=== PATIENT | male | born 1995 | race African-American/Black ===

== ENCOUNTER 2016-06-21 12:18 | Emergency (ER) | payer OTHER ==
[2016-06-21 12:23] VITALS: RESP 16; TEMP 98.1
--- NOTE | 2016-06-21 12:25 | EDPHY ---
H & P Stated Complaint: L HIP PAIN Time Seen by Provider: 06/21/16 12:18 HPI/ROS: CHIEF COMPLAINT: left hip pain HISTORY OF PRESENT ILLNESS: 21-year-old male presents emergency department by ambulance and the [facility] sports medicine fellow with left hip pain. Patient was in practice running with the ball when another player ran into his left hip. Patient had immediate pain. His left hip was dislocated per provider on scene. Patient had neurovascular compromise and his hip was reduced by . Patient on arrival to the emergency department reports his pain is in his groin, he denies numbness or tingling to this leg, he has pain with any range of motion. Patient denies previous injury to this hip. No head strike, no neck pain. REVIEW OF SYSTEMS: A comprehensive 10 point review of systems is otherwise negative aside from elements mentioned in the history of present illness. Source: Patient Exam Limitations: No limitations - Personal History Current Tetanus/Diphtheria Vaccine: Unsure - Medical/Surgical History Hx Asthma: No Hx Chronic Respiratory Disease: No Hx Diabetes: No Hx Cardiac Disease: No Hx Renal Disease: No Hx Cirrhosis: No Hx Alcoholism: No Hx HIV/AIDS: No Hx Splenectomy or Spleen Trauma: No - Social History Smoking Status: Never smoked - Physical Exam Exam: Physical Exam Gen: Alert and Oriented, NAD HEENT: PERRL, moist mucous membranes NECK: No C-spine tenderness to palpation Chest wall nontender CV: regular rate and regular rhythm PULM: CTAB, no wheezes ABDOMEN: soft, non tender to palpation, BS present BACK: Nontender NEURO: Neurologically grossly intact EXTREMITIES: Left hip with tenderness to palpation to lateral squeeze, 2+ pedal pulses, sensation intact to light touch, pain with any range of motion SKIN: no break in skin on exposed skin PSYCH: answers questions appropriately. Constitutional: Initial Vital Signs Temperature (C) 36.7 C 06/21/16 12:18 Heart Rate 86 06/21/16 12:18 Respiratory Rate 16 06/21/16 12:18 Blood Pressure 107/67 06/21/16 12:18 O2 Sat (%) 95 06/21/16 12:18 O2 Delivery Mode Room Air O2 (L/minute) 2 Allergies/Adverse Reactions: No Known Allergies Allergy (Unverified 06/21/16 12:21) Home Medications: Medication Instructions Recorded NK [No Known Home Meds] 06/21/16 Medical Decision Making - Diagnostics Imaging: X-ray left hip- Impression: Displaced acetabular fracture fragment. Recommend CT of the hip for further evaluation. Results discussed with Jeanne Keene. Dictated By: Bill Patel MD CT hip- Impression: Mildly displaced long segment acetabular fracture. Results discussed with Imtiaz Barragan. Dictated By: Bill Patel MD MRI left hip- Impression: Expected sequelae of a recent posterior left hip dislocation . The acetabular lip fracture is laterally displaced by approximately 8 mm. Results discussed with Jeanne Keene. Dictated By: Bill Patel MD ED Course/Re-evaluation: 21-year-old male presents to the ER with left hip pain after a dislocation during football practice at [facility]. The Sports Medicine fellow orthopedist reduced his dislocation EN route to the emergency department. X- ray reveals a acetabular fracture. [facility] sports medicine doctor is requesting a MRI of this hip which has been ordered. We also have ordered a CT of this hip. 245pm-patient will be transferred to [facility]. Dr. Pihllips, orthopedic trauma surgeon is the accepting physician. Patient continues neurovascularly intact, left hip pain is 3/10. He will be given a dose of IV Dilaudid. - Data Points Medications Given: Discontinued Medications Fentanyl (Sublimaze) 100 mcg IVP EDNOW ONE Stop: 06/21/16 12:50 Last Admin: 06/21/16 12:52 Dose: 100 mcg Hydromorphone HCl (Dilaudid) 0.5 mg IVP EDNOW ONE Stop: 06/21/16 14:41 Last Admin: 06/21/16 14:57 Dose: 0.5 mg Departure - Departure Disposition: Acute Care Hospital Not [facility] Clinical Impression: Left acetabular fracture Qualifiers: Encounter type: initial encounter Sublocation of acetabulum: unspecified portion of acetabulum Fracture type: closed Fracture alignment: displaced Qualified Code(s): S32.402A - Unspecified fracture of left acetabulum, initial encounter for closed fracture Condition: Good Referrals: Patient,NotPresent [Unknown] - As per Instructions
[2016-06-21] MEDS ORDERED: fentaNYL 100 MCG/2 ML INJ IVP ONE (12:49)
[2016-06-21] MEDS ORDERED: HYDROmorphONE/DILAUDID 1 MG/ML SYR IVP ONE (14:40)
[2016-06-21 16:08] VITALS: BP 124/76; PULSE 79; O2SAT 94
--- NOTE | 2016-06-21 16:41 | GCON ---
DATE OF CONSULTATION: 06/21/2016 CHIEF COMPLAINT: Left hip pain. 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 This afternoon after practice, the patient was running the ball and twisted a t the same time he was contacted by an opposing player resulting in immediate left hip pain. Upon i nitial evaluation while the patient was on the field, his hip was flexed and internally rotated. He was unable to straighten in his hip. He was neurovascularly intact distally. He was able to dorsi and plantar flex the ankle as well as the toes. Initial evaluation was concerning for a left hip p osterior dislocation. Due to this fact, immediately an ambulance was called and arrived very quickl y. Approximate time of left hip dislocation was 11:45 a.m. An IV was started on the patient as moon n as the ambulance arrived. He was placed in the ambulance and then in transit to the hospital he w as given 10 mL of valium to help relax his muscles due to worsening pain in the left leg as well as some increasing numbness in the left foot. The decision was made to perform a reduction maneuver wh ile in transit. The patient's left pelvis anterior superior iliac spine was stabilized by the clifford edic while I applied in-line traction and gentle internal rotation to left hip. A palpable clunk wa s felt with the immediate ability of the patient to be able to straighten his leg. Sensation in the left foot immediately returned and he felt significant improvement of his pain level. Exam before the hip reduction consisted of the patient's left hip being in slight flexion internal r otation. He had sensation of the foot. He was able to dorsi and plantar flex the ankle as well as flex and extend the toes. He had a palpable dorsalis pedis pulse with a warm perfused foot. While in transit to the hospital, the patient had increasing pain as well as some numbness progressing in his left foot. Therefore the decision was made to perform a reduction maneuver. Following the redu ction maneuver, the patient was able to fully extend the hip. He had significant improvement of his pain as well as significant improvement of the numbness that he had had in his left foot. He had p alpable dorsalis pedis and posterior tibial pulses and full sensation in the foot. He was able to d orsiflex and plantarflex the ankle as well as extend and flex the toes. Approximate time of disloca tion was 11:45 a.m. Time of reduction was 12:05 p.m., therefore the patient was dislocated for appr oximately 20 minutes. Upon arrival to the emergency room at about 12:25 x-rays, CT and MRI were conducted of the patient's left hip. X-RAY AND IMAGING FINDINGS: X-ray and imaging was significant for a concentrically reduced left hip with concern for posterior acetabular wall fracture and approximately 5-6 mm of displacement of the posterior wall fragment. No femoral neck fracture was demonstrated on CT. ASSESSMENT AND PLAN: The patient's status was communicated with the Orthopedic Surgery care team of the [facility]. The patient's initial injury as well as care was discu ssed with Dr. Kb David of the [facility] Orthopedic Surgery Department as well as th e Orthopedic Trauma surgeon at the [facility], Bulmaro Emanuel. Upon re view of the films by Dr. Emanuel, the decision was made that the patient should not be discharged home and should actually be transferred to [facility] and posterior hip precautions should be m aintained until the time of surgery. This decision was made due to concern for instability of the l eft hip due to the size of the posterior wall fragment. Transfer was begun at that time to send the patient to [facility] where he will likely undergo open reduction internal fixation on Thursday. Until that time, posterior hip precautions will be maintained and he will be in a protected enviro nment. He is going to remain nonweightbearing on the left lower extremity until he undergoes surger y. The diagnosis and plan were discussed with the patient as well as Dr. Kb David and Bulmaro white and everyone is agreeable to that plan forward. All his questions and concerns were shayne Hi #: [id number]
== END 2016-06-21 16:14 | disposition short-term general hospital (02) ==
DX: S32.442A Displaced fracture of posterior column [ilioischial] of left acetabulum, initial encounter for closed fracture (principal); X58.XXXA Exposure to other specified factors, initial encounter; Y99.8 Other external cause status; Y93.02 Activity, running
CPT/HCPCS: 96374; J1170; J3010

== ENCOUNTER 2018-02-07 22:14 | Emergency (ER) | payer OTHER ==
[2018-02-07] MEDS ORDERED: ONDANSETRON 4 MG/2 ML VIAL IVP ONE ×2 (22:31→23:28)
[2018-02-07] MEDS ORDERED: NS 1,000 ML IV ONE ×2 (22:31→23:24)
--- NOTE | 2018-02-07 23:10 | EDPHY ---
H & P Stated Complaint: NAUSEA VOMITING UNABLE TO KEEP FOOD FLUID IN AFTER ETOH LAST NOC Time Seen by Provider: 02/07/18 22:28 HPI/ROS: Chief Complaint: Nausea, vomiting, dehydration HPI: 23-year-old male presenting with nausea vomiting and dehydration today. Patient states that he felt he drank too much alcohol last night. He has not been able to keep any fluids down today. He feels lightheaded when he stands. No syncope. He did not fall. Did not his head. Denies using any other substances. No fevers or chills. No blood in his vomit or coffee-grounds. No dark tarry stools. Denies other medical problems. ROS: 10 systems were reviewed and were negative except those elements noted in the HPI. PMH: Denies Social History: No smoking, occasional alcohol Family History: non-contributory Physical Exam: Gen: Awake, Alert, No Distress HEENT: Nose: no rhinorrhea Eyes: PERRLA, EOMI Mouth: Dry mucosa Neck: Supple, no JVD Chest: nontender, lungs clear to auscultation Heart: S1, S2 normal, no murmur Abd: Soft, non-tender, no guarding Back: no CVA tenderness, no midline tenderness Ext: no edema, non-tender Skin: no rash Neuro: CN II-XII intact, Sensation grossly intact, Strength 5/5 in bilateral upper and lower extremities - Personal History Current Tetanus/Diphtheria Vaccine: Yes Current Tetanus Diphtheria and Acellular Pertussis (TDAP): Yes - Medical/Surgical History Hx Asthma: No Hx Chronic Respiratory Disease: No Hx Diabetes: No Hx Cardiac Disease: No Hx Renal Disease: No Hx Cirrhosis: No Hx Alcoholism: No Hx HIV/AIDS: No Hx Splenectomy or Spleen Trauma: No Other PMH: denies - Social History Smoking Status: Never smoked Constitutional: Initial Vital Signs Temperature (C) 36.5 C 02/07/18 22:16 Heart Rate 67 02/07/18 22:16 Respiratory Rate 18 02/07/18 22:16 Blood Pressure 125/81 H 02/07/18 22:16 O2 Sat (%) 99 02/07/18 22:16 O2 Delivery Mode Room Air Allergies/Adverse Reactions: No Known Allergies Allergy (Unverified 02/07/18 22:18) Home Medications: Medication Instructions Recorded NK [No Known Home Meds] 06/21/16 Medical Decision Making - Data Points Laboratory Results: Laboratory Results 02/07/18 22:40 10 22:40 Sodium 143 mEq/L mEq/L (135-145) Potassium 4.4 mEq/L mEq/L (3.3-5.0) Chloride 102 mEq/L mEq/L (97-110) Carbon Dioxide 27 mEq/l mEq/l (22-31) Anion Gap 14 mEq/L mEq/L (6-14) BUN 11 mg/dL mg/dL (7-23) Creatinine 1.2 mg/dL mg/dL (0.7-1.3) Estimated GFR > 60 Glucose 83 mg/dL mg/dL (70-100) Calcium 10.2 mg/dL mg/dL (8.5-10.4) Medications Given: Discontinued Medications Sodium Chloride (Ns) 1,000 mls @ 0 mls/hr IV ONCE ONE; Wide Open PRN Reason: Protocol Stop: 02/07/18 22:32 Last Admin: 02/07/18 22:40 Dose: 1,000 mls Ondansetron HCl (Zofran) 4 mg IVP EDNOW ONE Stop: 02/07/18 22:32 Last Admin: 02/07/18 22:41 Dose: 4 mg Departure - Departure Disposition: Home, Routine, Self-Care Clinical Impression: Nausea & vomiting, Dehydration Condition: Good Instructions: Dehydration (ED), Acute Nausea and Vomiting (ED) Additional Instructions: Make sure to drink plenty of fluids, at least 8, 8 oz glasses of water a day. Follow up with primary care physician in 3-4 days for any concerns. Referrals: NONE *PRIMARY CARE P,. [Primary Care Provider] - As per Instructions
[2018-02-07] MEDS ORDERED: ONDANSETRON 4 MG/2 ML VIAL ONE (23:25)
[2018-02-08 00:21] VITALS: BP 108/58
[2018-02-08] MEDS ORDERED: ONDANSETRON 4MG PREPACK#2 BTL TAKEHOME ONE (00:45)
== END 2018-02-08 01:00 | disposition home or self-care (01) ==
DX: R11.2 Nausea with vomiting, unspecified (principal); E86.0 Dehydration
CPT/HCPCS: 96374; J2405